=== PATIENT | female | born 1995 | race Hispanic/Latino ===

== ENCOUNTER 2018-09-26 13:38 | Inpatient (IN) | payer OTHER ==
[2018-09-26] MEDS ORDERED: Carboprost 250 MCG/ML AMP IM PRN (20:56)
[2018-09-26] MEDS ORDERED: Lidocaine 1% (PF) 30 ML VIAL SC PRN (20:56)
[2018-09-26] MEDS ORDERED: HYDROcodone/Acetaminophen 5/325 mg Tablet PO PRN ×2 (20:56)
[2018-09-26] MEDS ORDERED: NS / Oxytocin 40 units/1000ml 1,000 ML IV PRN (20:56)
[2018-09-26] MEDS ORDERED: Ibuprofen 800 MG TAB PO PRN (20:56)
[2018-09-26] MEDS ORDERED: Ondansetron PF 4 MG/2 ML Vial IVP PRN (20:56)
[2018-09-26] MEDS ORDERED: Docusate 100 MG CAP PO PRN (20:56)
[2018-09-26] MEDS ORDERED: Misoprostol 200 MCG TAB PR PRN (20:56)
[2018-09-26] MEDS ORDERED: Butorphanol Tartrate 1 MG/ML VIAL SLOW IVP PRN (20:56)
[2018-09-26] MEDS ORDERED: Zolpidem Tartrate 5 MG TAB PO PRN (20:56)
[2018-09-26] MEDS ORDERED: Promethazine HCl 25 MG/ML VIAL IM PRN (20:56)
[2018-09-26] MEDS ORDERED: Methylergonovine 0.2 MG/ML VIAL IM PRN (20:56)
[2018-09-26] MEDS ORDERED: Diphenoxylate HCl/Atropine Tablet PO PRN ×2 (20:56)
[2018-09-26] MEDS ORDERED: NS w/ Oxytocin 10 units 500 ML IV SCH ×2 (21:00)
--- NOTE | 2018-09-26 21:02 | PDOC.LDHP ---
Labor and Delivery H&P HPI: 22 year old at 39 weeks 1 day presents for term elective induction of labor. Current gestational age (weeks): 39 Due date: 10/03/18 Grav: 2 Para: 1 Current complications: none Abnormal US findings: No Current medications: pre- vitamins Previous surgical history: none Social history: none - Physical Exam Vital signs reviewed and normal: yes General: NAD Heart: RRR Lungs: CTAB Abdomen: gravid Extremeties: no edema FHT: category 1 - Assessment L&D Assessment: elective induction at term - Plan Plan: admit to L&D, cervical ripening
[2018-09-27] MEDS ORDERED: NS w/ Oxytocin 10 units 500 ML ONE (17:25)
[2018-09-27 17:40] VITALS: BMI 37.9
[2018-09-27 17:43] LABS: Hemoglobin 11.9 g/dL (12.0-16.0); Mean Corpuscular HGB CONC 34.2 g/dL (32.0-36.0); Mean Corpuscular Hemoglobin 30.1 pg (27.0-31.0); Mean Corpuscular Volume 88.1 fL (78.0-98.0); Mean Platelet Volume 9.3 fL (7.4-10.4); Platelet Count 215 thou/uL (130-400); RBC Distribution Width 12.3 % (11.5-14.5); Red Blood Cell (RBC) Count 3.95 mill/uL (4.20-5.40); White Blood Cell (WBC) Count 7.2 thou/uL (4.8-10.8)
[2018-09-27 18:24] LABS: Syphilis Antibody Nonreactive (Nonreactive); Syphilis Antibody Index 0.04 S/CO (<1.00 Non-Reactive)
[2018-09-27 18:25] LABS: HBSAg Index 0.29 S/CO (0-0.99); Hep B Surf Ag Non-Reactive S/CO (NonReactive)
[2018-09-27] MEDS: Misoprostol 100 MCG TAB VAG SCH (20:16)
[2018-09-27] MEDS: Lactated Ringer's 1,000 ML IV SCH (21:16)
[2018-09-28] MEDS ORDERED: Acetaminophen 500 MG TAB PO SCH (00:15)
[2018-09-28] MEDS ORDERED: Fentanyl 4 mcg/Bup 0.1% Cadd 100 ML ONE (05:36)
[2018-09-28] MEDS ORDERED: diphenhydrAMINE 50 MG/ML VIAL IVP PRN (06:29)
[2018-09-28] MEDS ORDERED: Ondansetron PF 4 MG/2 ML Vial IVP PRN ×2 (06:29→16:58)
[2018-09-28] MEDS ORDERED: ePHEDrine/0.9% NaCl/PF SYRINGE 50 mg/10 ml SLOW IVP PRN (06:29)
[2018-09-28] MEDS ORDERED: Acetaminophen 325 MG TAB PO PRN (06:29)
[2018-09-28] MEDS ORDERED: Naloxone HCl 0.4 mg/ml Vial IVP PRN ×2 (06:29)
[2018-09-28] MEDS ORDERED: Lactated Ringer's 500 ML IV PRN (06:29)
[2018-09-28] MEDS ORDERED: Promethazine HCl 25 MG/ML VIAL IM PRN ×2 (06:29→16:58)
[2018-09-28] MEDS ORDERED: Eucerin (Mineral Oil/Petrolatum,White) 30 gm Jar TOP PRN (06:29)
[2018-09-28] MEDS ORDERED: Communication Order-Pharmacy FS SCH (06:30)
[2018-09-28] MEDS ORDERED: Fentanyl 4 mcg/Bupivacaine 0.1% Cassette 100 ML EPIDURAL SCH (06:30)
[2018-09-28] MEDS: Lactated Ringer's 1,000 ML IV SCH ×3 (06:30→17:37)
[2018-09-28] MEDS ORDERED: NS / Oxytocin 40 units/1000ml 1,000 ML ONE (10:05)
[2018-09-28] MEDS ORDERED: Lidocaine 1% (PF) 30 ML VIAL ONE (10:05)
[2018-09-28] MEDS ORDERED: diphenhydrAMINE 25 MG CAP PO PRN (16:58)
[2018-09-28] MEDS ORDERED: Benzocaine-Menthol 82.5 ML CAN TOP PRN (16:58)
[2018-09-28] MEDS ORDERED: NS / Oxytocin 40 units/1000ml 1,000 ML IV SCH (16:58)
[2018-09-28] MEDS ORDERED: HYDROcodone/Acetaminophen 5/325 mg Tablet PO PRN (16:58)
[2018-09-28] MEDS ORDERED: Preparation H Ointment 28 GM TUBE PR PRN (16:58)
[2018-09-28] MEDS ORDERED: Lanolin Ointment 7 GM TUBE TOP PRN (16:58)
[2018-09-28] MEDS ORDERED: Milk Of Magnesia 30 ML UDCUP PO PRN (16:58)
[2018-09-28] MEDS ORDERED: Bisacodyl 10 MG SUPP PR PRN (16:58)
[2018-09-28] MEDS: Misoprostol 100 MCG TAB VAG SCH ×4 (17:32→17:35)
[2018-09-28] MEDS: Ferrous Sulfate 325 MG TAB PO SCH (18:50)
[2018-09-28] MEDS ORDERED: Adacel (T-DAP) 0.5 ML SYRINGE IM ONE (21:00)
[2018-09-28] MEDS ORDERED: Measles/Mumps/Rubella 10 MCG/0.5 ML VIAL SC ONE (21:00)
[2018-09-28] MEDS ORDERED: Varicella virus, LIVE 0.5 ML VIAL SC ONE (21:00)
[2018-09-28] MEDS: Docusate Calcium (SURFAK) 240 MG CAP PO SCH (21:58)
[2018-09-28] MEDS: Ibuprofen 800 MG TAB PO SCH (21:58)
[2018-09-29] MEDS: HYDROcodone/Acetaminophen 5/325 mg Tablet PO PRN ×2 (00:17→08:38)
[2018-09-29] MEDS: Ibuprofen 800 MG TAB PO SCH ×2 (05:31→14:16)
[2018-09-29 07:50] LABS: Mean Corpuscular HGB CONC 34.2 g/dL (32.0-36.0); Mean Corpuscular Hemoglobin 30.3 pg (27.0-31.0); Mean Corpuscular Volume 88.5 fL (78.0-98.0); Mean Platelet Volume 10.1 fL (7.4-10.4); Platelet Count 191 thou/uL (130-400); RBC Distribution Width 12.4 % (11.5-14.5); Red Blood Cell (RBC) Count 3.65 mill/uL (4.20-5.40); White Blood Cell (WBC) Count 8.8 thou/uL (4.8-10.8)
[2018-09-29 08:34] VITALS: BP 114/72; TEMP 98
[2018-09-29] MEDS: Ferrous Sulfate 325 MG TAB PO SCH (08:36)
[2018-09-29] MEDS: Docusate Calcium (SURFAK) 240 MG CAP PO SCH (08:37)
[2018-09-29] MEDS ORDERED: Prenatal Vitamin 1 TAB PO SCH (09:00)
== END 2018-09-29 16:09 | disposition home or self-care (01) | DRG 807 ==
LOC: L&D 09-27 16:09 → 3SW 09-28 14:15
PROVIDERS: ADMIT Obstetrics & Gynecology; ATTEND Obstetrics & Gynecology
PROC: 3E033VJ Introduction of Other Hormone into Peripheral Vein, Percutaneous Approach (ICD-10-PCS; principal; 2018-09-28)
PROC: 10E0XZZ Delivery of Products of Conception, External Approach (ICD-10-PCS; 2018-09-28)
DX: O99.62 Diseases of the digestive system complicating childbirth (principal); Z37.0 Single live birth; Z3A.39 39 weeks gestation of pregnancy; K21.9 Gastro-esophageal reflux disease without esophagitis
CPT/HCPCS: 36415; 51702; 85027; 86780; 86850; 86900; 86901; 87340; 90716; J2001; J2590

== ENCOUNTER 2018-11-02 22:30 | Emergency (ER) | payer OTHER ==
[2018-11-02] MEDS ORDERED: Ketorolac Tromethamine 30 MG/ML VIAL ONE (22:44)
[2018-11-02 23:00] LABS: #Basophils 0.1 thou/uL (0.0-0.2); #Eosinphils 0.2 thou/uL (0.0-0.7); #Lymphocytes 2.9 thou/uL (1.20-3.40); #Monocytes 0.4 thou/uL (0.11-0.59); #Neutrophils 3.9 thou/uL (1.40-6.50); %Basophils 0.9 % (0.0-1.0); %Eosinophils 2.8 % (0.0-10.0); %Lymphocytes 38.3 % (21.0-51.0); %Monocytes 5.7 % (0.0-10.0); %Neutrophils 52.3 % (42.0-75.0); Hemoglobin 14.1 g/dL (12.0-16.0); Mean Corpuscular Volume 88.2 fL (78.0-98.0); Mean Platelet Volume 9.5 fL (7.4-10.4); Platelet Count 216 thou/uL (130-400); Red Blood Cell (RBC) Count 4.69 mill/uL (4.20-5.40); White Blood Cell (WBC) Count 7.5 thou/uL (4.8-10.8)
[2018-11-02 23:01] LABS: Bilirubin Negative (Negative); Blood, Urine Negative (Negative); Clarity CLEAR (Clear); Glucose, Urine (Dipstick) Negative (Negative); Leukocyte Small (Negative); Nitrite Negative (Negative); Protein, Urine (Dipstick) Negative (Neg-Trace); pH, Urine 7.5 (5.0-9.0)
[2018-11-02 23:02] LABS: Bacteria/HPF None Seen HPF (None Seen); Hyaline Casts/LPF 0-3 HYALINE CAST LPF (0-3 Hyaline); Pregnancy Test - Urine (BHCG) Negative (Negative); Pregu Control Background? CLEAR/WHITE (CLR/WHITE); Pregu Control Bar Appear? YES (CONTROL BAR); RBC/HPF 0-3 HPF (0-3); Squamous Epithelial 0-3 HPF (0-3)
[2018-11-02 23:21] LABS: ALT (SGPT) 13 U/L (8-55); AST (SGOT) 12 U/L (5-34); Albumin 4.4 g/dL (3.5-5.0); Alkaline Phosphatase 88 U/L (40-150); Anion Gap 14 mmol/L (10-20); BUN (Urea Nitrogen) 14 mg/dL (7.0-18.7); Bilirubin, Total 0.2 mg/dL (0.2-1.2); Calc. Creatinine Clearance 0 mL/min (70-130); Carbon Dioxide 25 mmol/L (22-29); Chloride 106 mmol/L (98-107); Estimated GFR-MDRD 86; Globulin 3.2 g/dL (2.4-3.5); Glucose 107 mg/dL (70-105); Lipase 38 U/L (8-78); Potassium 3.8 mmol/L (3.5-5.1); Protein, Total 7.6 g/dL (6.0-8.3); Sodium 141 mmol/L (136-145)
--- NOTE | 2018-11-02 23:52 | ULT ---
Exam: Right upper quadrant ultrasound: HISTORY: Right upper quadrant abdominal pain, constipation. COMPARISON: None FINDINGS: Liver: Within normal limits Gallbladder: A few echogenic foci are seen within the region of the neck of the gallbladder which dem onstrate posterior shadowing and are compatible with gallbladder calculi largest measuring approximately 1.4 cm. The gallbladder is distended measuring 13.5 cm in length. Small amount of sludg e is also present in the gallbladder lumen. There is no gallbladder wall thickening or pericholecystic fluid. However, the medical library assistant does note a positive sonographic Enciso's sign. Common bile duct: The common duct is normal in caliber measuring 0.5 cm in diameter. Pancreas: Limited visualized portions of the pancreas demonstrate a normal sonographic appearance. Right kidney: Right kidney demonstrates a normal sonographic appearance. The right kidney measures 1 2.8 cm in length. IVC: The visualized IVC demonstrates a normal sonographic appearance. IMPRESSION: Cholelithiasis with mild distention of the gallbladder. There is no gallbladder wall thickening or pe richolecystic fluid to definitely suggest cholecystitis. Outsole Compressor does note a positive sonographic Enciso's sign. Depending on clinical concern, hepatobiliary study may be helpful for furt her evaluation.
[2018-11-02] MEDS ORDERED: Morphine 4 MG/ML VIAL ONE (23:59)
[2018-11-03] MEDS ORDERED: Ondansetron PF 4 MG/2 ML Vial ONE (00:25)
== END 2018-11-03 00:41 | disposition home or self-care (01) ==
LOC: ERS 22:30
DX: K80.20 Calculus of gallbladder without cholecystitis without obstruction (principal)
CPT/HCPCS: 76705; 80053; 81003; 81015; 81025; 83690; 85025; 96361; 96374; 96375; J1885; J2270; J2405

== ENCOUNTER 2020-01-31 13:59 | Emergency (ER) | payer OTHER, SELFPAY ==
[2020-01-31] MEDS ORDERED: Naproxen 500 MG TAB ONE (14:27)
== END 2020-01-31 14:50 | disposition home or self-care (01) ==
LOC: ERS 13:59 → EDBD 13:59 → ERS 14:50
DX: M54.5 Low back pain (principal); X50.0XXA Overexertion from strenuous movement or load, initial encounter
CPT/HCPCS: 99283

== ENCOUNTER 2020-03-25 08:20 | Emergency (ER) | payer SELFPAY ==
[2020-03-25] MEDS ORDERED: cefTRIAXone\\ROCEPHIN 1 GM VIAL ONE (08:47)
[2020-03-25] MEDS ORDERED: Ketorolac Tromethamine 30 MG/ML VIAL ONE (08:47)
[2020-03-25] MEDS ORDERED: Dexamethasone 10 MG/ML VIAL ONE (08:47)
== END 2020-03-25 10:06 | disposition home or self-care (01) ==
LOC: ERS 08:20
DX: J36 Peritonsillar abscess (principal); F41.9 Anxiety disorder, unspecified; F17.210 Nicotine dependence, cigarettes, uncomplicated
CPT/HCPCS: 96365; 96375; J0696; J1100; J1885